=== PATIENT | male | born 1970 | race Asian ===

== ENCOUNTER → 2018-07-14 12:05 | Day surgery (SDC) | payer MEDICARE, MEDICAID ==
[~2018-07-14 12:05] MED LIST: Buffered Lidocaine 1% SYRIN* 1 ML/SYRINGE INTRADERM ONE; Lactated Ringers 1000 ML Bag* 1,000 ML IV SCH; Lidocaine 1%* 5 ML VIAL ONE; Naloxone* 0.4 MG/ML 1 ML VIAL IV PRN; Propofol* 0 MG/0 ML BTL ONE
[2018-07-14 15:57] VITALS: BP 135/93
--- NOTE | 2018-07-14 21:03 | PRO ---
CC: Marcellus Daniels MD.* DATE OF PROCEDURE: 07/14/18 - ENDO PROCEDURE: Colonoscopy with biopsy. REFERRING PROVIDER: Marcellus Daniels MD. INDICATION: Fecal incontinence and loose stool. No prior colonoscopy. MEDICATIONS GIVEN: By Anesthesia. DESCRIPTION OF PROCEDURE: Full disclosure of risks was reviewed with the patient as detailed on the consent form. The patient was placed in the left lateral decubitus position and monitored with continuous pulse oximetry, capnography, interval blood pressure monitoring, and direct observation. After anorectal examination was performed, the adult colonoscope was advanced to the level of the cecum. Prep was poor with significant retained fluid and liquid stool. Some areas of mucosa were able to be seen after washing and suctioning, although others remained partially obscured by thicker stool. Cecum was identified by appendiceal orifice and terminal ileum. Scope was actually inserted into the terminal ileum fairly. Adequate views were obtained of the cecum including the medial wall between the IC valve and the appendiceal orifice. Inspection of the chronic mucosa was performed as the scope was withdrawn. Findings and interventions are described below. FINDINGS: Anorectal exam was performed. There was mildly decreased sphincter tone. No hemorrhoids or masses noted. Scope was then advanced slowly and carefully to the cecum. Once in the cecum, the terminal ileum was intubated x5 cm. Ileum was normal in appearance. Scope was then withdrawn to the cecum and throughout the colon. Prep was poor as discussed above. Random biopsies were obtained throughout the colon. No overt inflammation noted. No large polyps or masses within the limitations of this study due to prep. Finally, the retroflexion was performed in the rectum, which revealed internal hemorrhoids. In the last 5 to 10 cm of the rectum, there was mild erythema, which may represent prep effect. Biopsies were obtained separately. There was mild erythema and linear striae. Biopsies were obtained and labeled separately. Scope was then withdrawn from the patient. The patient tolerated the procedure well and was recovered in the GI recovery area. IMPRESSION: 1. A complete colonoscopy in the terminal ileum. 2. Poor prep. 3. Very minimal abnormal appearance to the distal rectum. Otherwise, unremarkable exam. FOLLOWUP: 1. Await pathology. 2. Follow up in clinic. 3. Will need a repeat colonoscopy for colon cancer screening at age 49. Would recommend performing with extended prep given today's prep. Thank you very much for this referral. [id number]/[facility] #: [id number] ELIUD
== END | disposition home or self-care (01) ==
LOC: ENDO 12:05
PROVIDERS: ATTEND Internal Medicine Gastroenterology
DX: K57.30 Diverticulosis of large intestine without perforation or abscess without bleeding (principal); K64.8 Other hemorrhoids; R19.5 Other fecal abnormalities; R15.9 Full incontinence of feces; F42.9 Obsessive-compulsive disorder, unspecified; K62.89 Other specified diseases of anus and rectum; K63.89 Other specified diseases of intestine; Z86.69 Personal history of other diseases of the nervous system and sense organs; Z79.899 Other long term (current) drug therapy
CPT/HCPCS: 88305; J2704

== ENCOUNTER → 2018-11-10 09:41 | Day surgery (SDC) | payer MEDICARE, MEDICAID ==
[~2018-11-10 09:41] MED LIST changes: +Dexamethasone IV* 4 MG/ML 1 ML (4 MG) ONE; +Famotidine IV* 10 MG/ML 2 ML (20 mg) IV ONE; +Famotidine IV* 10 MG/ML 2 ML (20 mg) ONE; +Ketorolac INJ* 30 MG/ML 1 ML VIAL ONE; -Lidocaine 1%* 5 ML VIAL ONE; +Lidocaine 2% PF * 5 ML VIAL ONE; +Midazolam* 1 MG/ML 5 ML VIAL (5 MG) ONE; +Ondansetron INJ* 2 MG/ML VIAL IV PRN; +Ondansetron INJ* 2 MG/ML VIAL ONE; -Propofol* 0 MG/0 ML BTL ONE; +Propofol* 10 MG/ML 20 ML BTL ONE; +Ropivacaine* 2 MG/ML 20 ML VIAL (0.2%) ONE; +ceFAZolin 2 GM PREMIX in ORs 2 GM/50 ML BAG IVPB ONE; +fentaNYL* 50 MCG/ML 2 ML VIAL (100 MCG VIAL) IV PRN; +fentaNYL* 50 MCG/ML 2 ML VIAL (100 MCG VIAL) ONE
[2018-11-10 14:53] VITALS: BP 150/96
--- NOTE | 2018-11-10 23:37 | OP ---
CC: PCP* OPERATIVE REPORT: DATE OF OPERATION: 11/10/18 - SDS DATE OF : 68 SURGEON: Torri Garcia MD ASSISTANTS: IMELDA Hubbard, and IMELDA Kulkarni. An assistant designer was needed for the entirety of the case to help with positioning, retraction, and was utilized throughout all portions of the case. ANESTHESIOLOGIST: Dr. Nicholas. ANESTHESIA: General with LMA. PRE-OP DIAGNOSIS: Right radial shaft fracture. POST-OP DIAGNOSIS: Right radial shaft fracture. OPERATIVE PROCEDURE: Open reduction internal fixation of the right radial shaft. COMPLICATIONS: None. IMPLANTS USED: Synthes 3.5 mm LCP plate. TOURNIQUET TIME: 72 minutes on 250 mmHg. DISPOSITION: Stable to the PACU with brisk cap refill with well perfused digits and 2+ radial pulse. INDICATIONS: Anjana Roman is a 48-year-old male who sustained a fall with closed fracture to his right radial shaft. He was evaluated at urgent care and then brought to the office. He was probably diagnosed, placed in a well-padded splint, and then after extensive discussion of risks and benefits of surgery, he and his sister elected to proceed. He lives in a fpc and is developmentally disabled and his sister did consent, this is Noy Roman who did it. Risks and benefits were discussed at length include, but are not limited to bleeding, infection, damage to nerves, vessels, and surrounding structures; wound nonhealing; refracture; nonunion; malunion; fracture around the plate; need for further surgery; risks of anesthesia; stiffness; scarring; persistent pain. He has elected to proceed. DESCRIPTION OF PROCEDURE: The patient was greeted in the preoperative area by the attending surgeon. Correct extremity was marked and consent was confirmed with the sister via verbal consent over the phone. The patient was then brought back to operative suite. He was placed in supine position on the operating table. The hand table was brought to the table and the patient underwent general anesthesia with LMA intubation, after which a nonsterile tourniquet was placed high on the proximal arm, the splint was removed, and the skin was intact with bruising. The right arm was then prepped and draped in the usual sterile fashion beginning with chlorhexidine soap, scrub, and alcohol wipe and a final prep with ChloraPrep. After appropriate surgical pause indicating the site, side, procedure, and administration of antibiotics, a 15 blade was used to make an incision in volar approach to the forearm. The soft tissues were dissected to expose the lateral antebrachial cutaneous nerve which was protected, taken laterally. The interval between the brachioradialis and pronator teres proximally was identified and brachioradialis and FCR. The interval was then followed out to the bone which was palpated. Soft tissue was carefully exposed to the bone. This was comminuted fracture with the large butterfly fragment. The fracture fragments were then brought provisionally reduced and checked the C-arm. Once this was identified, an 8 mm LCP plate was then brought to the field and secured proximally and distally to make sure that the screws could be placed proximally and distally in the fracture. We then provisionally fixed distally and then proximally. This was checked. We started with the cortical screws and checked under fluoro and found to be acceptable. Final screw placement was placed, 2 more distal and 2 more proximal. Final images were obtained. The wounds were then copiously irrigated with sterile saline. The skin was closed in layers with 3-0 Monocryl in a running and deep fashion. Sterile dressings were applied. The wound was injected with 0.2% ropivacaine for pain control. Tourniquet was deflated and well-padded posterior splint with sugar-tong was applied. The extremity was pink and well perfused and radial pulse was 2+. He was awoken from anesthesia and transferred to PACU in stable condition. POSTOPERATIVE PLAN: He will be in nonweightbearing. He will be discharged on pain medication. DVT prophylaxis considered, but deferred due to no previous personal history. We placed the patient on postoperative antibiotics due to the fpc and his environment. I will see the patient back in 10 to 14 days with repeat x- rays out of the cast. [id number]/[facility] #: [id number] [facility]
== END | disposition home or self-care (01) ==
LOC: OR 09:41
PROVIDERS: ATTEND Orthopaedic Surgery
DX: S52.351A Displaced comminuted fracture of shaft of radius, right arm, initial encounter for closed fracture (principal); W01.0XXA Fall on same level from slipping, tripping and stumbling without subsequent striking against object, initial encounter; Y92.480 Sidewalk as the place of occurrence of the external cause; G40.209 Localization-related (focal) (partial) symptomatic epilepsy and epileptic syndromes with complex partial seizures, not intractable, without status epilepticus; F41.9 Anxiety disorder, unspecified
CPT/HCPCS: 76000; C1713; C1776; J0690; J1100; J1885; J2250; J2405; J2704; J2795; J3010